=== PATIENT | male | born 1960 | race Two or more races ===

== ENCOUNTER 2022-03-14 23:08 | Emergency (ER) | payer OTHER ==
[~2022-03-14] VITALS: Ht 175.3 cm; Wt 103.1 kg
[2022-03-15 01:14] VITALS: BP 117/73
== END 2022-03-15 05:23 | disposition home or self-care (01) ==
LOC: ER 23:13
DX: R04.0 Epistaxis (principal); I10 Essential (primary) hypertension; I25.10 Atherosclerotic heart disease of native coronary artery without angina pectoris; E78.5 Hyperlipidemia, unspecified